=== PATIENT | male | born 1990 | race African-American/Black ===

== ENCOUNTER 2024-05-11 06:09 | Emergency (ER) | payer OTHER, SELFPAY ==
[2024-05-11] VITALS (25 sets, daily range): BP systolic 103–132; BP diastolic 62–81; PULSE 59–82; TEMP 36.7; O2SAT 97–100; BMI 32.6
--- NOTE | 2024-05-11 06:34 | CT_ITS ---
[address] [address] Patient Name: KLEBER MELÉNDEZ MRN: [id number] date: 1990 Sex: M Assigned Patient Location: ER Current Patient Location: Accession/Order Number: [id number] Exam Date: 05/11/2024 06:40 Report Date: 05/11/2024 11:42 At the request of: ESTHER HICKMAN Procedure: CT stroke head/brain wo con CT HEAD WITHOUT CONTRAST, 05/11/2024. HISTORY: Headache. Seizure. COMPARISON: None. TECHNIQUE: Noncontrast axial CT images obtained through the head. Reconstructions obtained in the sagittal and coronal planes. Dose reduction techniques were achieved by using automated exposure control and/or adjustment of mA and/or kV according to patient size and/or use of iterative reconstruction technique. FINDINGS: The paranasal sinuses are clear. Mastoid air cells are clear. Skull base intact. No skull fracture. Orbital contents normal. Extracranial soft tissue structures are unremarkable. Mild generalized cerebral atrophy. There is chronic encephalomalacia in the right frontal lobe with volume loss and hypodensity. There may have been previous hemorrhage in this area. There is ex vacuo enlargement of the anterior horn and body of the right lateral ventricle. There is some chronic encephalomalacia in the periventricular white matter more posteriorly. There is some chronic encephalomalacia and volume loss in the body of the corpus callosum. No extra-axial fluid collection. No acute hemorrhage. No masses. CT/CT stroke head/brain wo con IMPRESSION: 1. No acute intracranial findings. No intracranial hemorrhage. 2. There is chronic encephalomalacia in the right frontal lobe and periventricular white matter on the right as well as in the body of the corpus callosum. There is some chronic encephalomalacia along the inferior aspect of the left frontal lobe. These findings may be related to prior traumatic brain injury. There is generalized cerebral volume loss. 3. No masses. Electronically authenticated by: SIERRA DANG Date: 05/11/2024 11:42
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
[2024-05-11 07:02] LABS: Basophils Absolute Auto 0.1 10^3/uL (0.0-0.1); Basophils Percent Auto 1.1 % (0.2-2.0); Eosinophils Absolute Auto 0.2 10^3/uL (0.0-0.7); Eosinophils Percent Auto 2.9 % (0.9-7.0); Hematocrit 37.7 % (42.0-54.0); Hemoglobin 12.4 g/dL (14.0-18.0); Immature Granulocytes Abs Auto 0.01 10^3/uL (0.00-0.03); Immature Granulocytes Pct Auto 0.2 % (0.0-0.5); Lymphocytes Percent Auto 30.3 % (20.5-60.0); Mean Corpuscular HGB Conc 32.9 g/dL (29.9-35.2); Mean Corpuscular Hemoglobin 29.2 pg (25.9-34.0); Mean Corpuscular Volume 88.9 fL (80.0-94.0); Mean Platelet Volume 11.1 fL (9.5-13.5); Monocytes Absolute Auto 0.5 10^3/uL (0.3-0.8); Monocytes Percent Auto 7.8 % (1.7-12.0); Neutrophils Absolute Auto 3.8 10^3/uL (1.4-6.5); Neutrophils Percent Auto 57.7 % (43.0-75.0); Platelet Count 194 10^3/uL (150-450); Red Blood Count 4.24 10^6/uL (4.70-6.10); White Blood Count 6.6 10^3/uL (4.0-11.0)
[2024-05-11] MEDS: KETOROLAC TROMETHAMINE 30 MG/ML VIAL 15 MG IVP (07:09)
[2024-05-11] MEDS: 0.9 % SODIUM CHLORIDE 1,000 ML 100 ML IV (07:09)
[2024-05-11 07:21] LABS: Alanine Aminotransferase 50 U/L (16-63); Albumin Globulin Ratio 1.1; Albumin Level 3.5 g/dL (3.4-5.0); Alkaline Phosphatase 78 U/L (46-116); Anion Gap 9.6; Aspartate Amino Transferase 24 U/L (15-37); BUN Creatinine Ratio 11.8; Bilirubin Total 0.3 mg/dL (0.2-1.0); Calcium 8.1 mg/dL (8.5-10.1); Carbon Dioxide 27.8 mmol/L (21.0-32.0); Chloride 107 mmol/L (98-107); Estimated GFR (African America >60 (>=60); Estimated GFR (Non-African Ame >60 (>=60); Globulin 3.2 g/dL; Glucose 93 mg/dL (74-106); Potassium 4.4 mmol/L (3.5-5.1); Sodium 140 mmol/L (136-145); Total Protein 6.7 g/dL (6.4-8.2)
[2024-05-11 07:27] LABS: Lactate/Lactic Acid 2.1 mmol/L (0.4-2.0)
[2024-05-11 07:40] LABS: Ethanol <3 mg/dL
[2024-05-11] MEDS: PROCHLORPERAZINE 10 MG/2 ML VIAL IV (09:10)
[2024-05-11 09:14] LABS: Amphetamine Screen Urine NEGATIVE (NEGATIVE); Benzodiazepines Screen Urine NEGATIVE (NEGATIVE); Cannabinoid Screen Urine POSITIVE (NEGATIVE); Cocaine Screen Urine NEGATIVE (NEGATIVE); Methamphetamines Screen Urine NEGATIVE (NEGATIVE); Opiate Screen Urine NEGATIVE (NEGATIVE); Phencyclidine Screen Urine NEGATIVE (NEGATIVE); Tricyclic Antidepressant Urine NEGATIVE (NEGATIVE)
[2024-05-11 09:15] LABS: Barbiturates Screen Urine NEGATIVE (NEGATIVE); Buprenorphine Screen Urine NEGATIVE (NEGATIVE); Methadone Screen Urine NEGATIVE (NEGATIVE); Oxycodone Screen Urine NEGATIVE (NEGATIVE)
[2024-05-11] MEDS: LEVETIRACETAM 500 MG TABLET 750 MG PO (09:30)
[2024-05-11 10:01] LABS: Lactate/Lactic Acid 1.1 mmol/L (0.4-2.0)
== END 2024-05-11 10:14 | disposition home or self-care (01) ==
PROVIDERS: Emergency Medicine; Emergency Provider Internal Medicine
DX: R56.9 Unspecified convulsions (principal); R51.9 Headache, unspecified; Z87.820 Personal history of traumatic brain injury
CPT/HCPCS: 36415; 70450; 80053; 80307; 80320; 83605; 85025; 96374; 96375; 99284; J0780; J1885